=== PATIENT | female | born 2000 | race Caucasian/White ===

== ENCOUNTER 2025-04-05 09:15 | Emergency (ER) | payer OTHER ==
[~2025-04-05] VITALS: Ht 154.9 cm; Wt 53.5 kg
[2025-04-05] MEDS ORDERED: ONDANSETRON ODT4 MG PO (09:47)
[2025-04-05] MEDS ORDERED: NAPROXEN250 MG PO (09:47)
[2025-04-05] MEDS: DEXAMETHASONE 4 MG TAB PO STA (09:49)
[2025-04-05] MEDS: ONDANSETRON HCL 4 MG ORAL DISINTEGRATING TAB PO ONE (09:49)
[2025-04-05 10:30] VITALS: PULSE 66; RESP 15; TEMP 99
[2025-04-05 10:49] VITALS: BP 104/68; PULSE 74; RESP 16; TEMP 98.9; O2SAT 97
== END 2025-04-05 10:45 | disposition home or self-care (01) ==
LOC: ER 09:20
DX: R50.9 Fever, unspecified (principal); J06.9 Acute upper respiratory infection, unspecified; R05.9 Cough, unspecified; R09.89 Other specified symptoms and signs involving the circulatory and respiratory systems; R11.0 Nausea; R53.83 Other fatigue
CPT/HCPCS: 99282; J8540; Q0162